=== PATIENT | male | born 1950 | race Caucasian/White ===

== ENCOUNTER 2018-01-08 14:36 | Inpatient (IN) | payer OTHER, MEDICARE ==
[~2018-01-08] VITALS: Ht 177.8 cm; Wt 140.8 kg
[2018-01-08 14:39] VITALS: BP_SYST 132
[2018-01-08] MEDS ORDERED: MORPHINE 4 MG/ML INJ. SYRINGE IM ONE (15:00)
[2018-01-08] MEDS ORDERED: NACL 0.9% 1,000 ML IV ONE (15:00)
[2018-01-08 15:16] LABS: BILIRUBIN,URINE NEGATIVE (NEGATIVE); BLOOD, URINE NEGATIVE (NEGATIVE); CLARITY/URINE CLEAR (CLEAR); COLOR,URINE YELLOW (YELLOW); GLUCOSE,URINE 3+ (NEGATIVE); KETONES,URINE NEGATIVE (NEGATIVE); LEUKOCYTE ESTERASE ,URINE NEGATIVE (NEGATIVE); NITRITE, URINE NEGATIVE (NEGATIVE); PROTEIN URINE NEGATIVE (NEGATIVE); UROBILINOGEN,URINE 0.2 (0.2-1.0)
[2018-01-08 15:27] LABS: BASOPHILS % (AUTO) 0.6 % (0.0-2.0); EOSINOPHILS # (AUTO) 0.4 K/uL (0.0-0.4); EOSINOPHILS % (AUTO) 4.5 % (0.0-4.0); HEMATOCRIT 44.5 % (36-54); HEMOGLOBIN 15.2 g/dL (14.0-18.0); LYMPHOCYTES # (AUTO) 1.4 K/uL (1.0-5.5); LYMPHOCYTES % (AUTO) 17.7 % (20.5-51.5); MEAN CORPUSCULAR HEMOGLOBIN 27 pg (27-31); MEAN CORPUSCULAR HGB CONC 34 % (32-36); MEAN CORPUSCULAR VOLUME 79 fL (79.0-98.0); MONOCYTES # (AUTO) 0.4 K/uL (0.0-1.0); MONOCYTES % (AUTO) 4.9 % (1.7-9.3); NEUTROPHILS # (AUTO) 5.8 K/uL (1.8-7.7); NEUTROPHILS % (AUTO) 72.3 % (40.0-70.0); PLATELET COUNT (AUTO) 141 K/uL (130-430); RED BLOOD CELL COUNT(AUTO) 5.61 MIL/uL (4.2-6.2); RED CELL DISTRIBUTION WIDTH 12.9 % (9.0-15.0)
[2018-01-08 15:29] LABS: BACTERIA,URINE FEW /HPF (None Seen); RBC,URINE 0-3 /HPF (0-3); WBC,URINE 0-3 /HPF (0-3)
[2018-01-08 15:40] LABS: CALCIUM 9.2 mg/dL (8.4-11.0); CREATININE 0.98 mg/dL (0.55-1.30); POTASSIUM 4.4 mmol/L (3.5-5.1)
[2018-01-08 15:41] LABS: PROTHROMBIN TIME 10.4 SECS (9.5-12.5)
[2018-01-08 15:45] LABS: ALBUMIN 3.5 g/dL (3.4-4.8); TOTAL BILIRUBIN 0.5 mg/dL (0.0-1.0)
[2018-01-08] MEDS ORDERED: IOHEXOL 100 ML IV ONE (15:48)
[2018-01-08] MEDS ORDERED: INSULIN REGULAR, HUMAN 10 UNITS/0.1 ML INJ IVP ONE (16:15)
[2018-01-08] MEDS ORDERED: cefTRIAXone 1 GM VIAL ONE (16:57)
[2018-01-08] MEDS ORDERED: cefTRIAXone 1 GM in D5W 50 ML IV ONE (17:00)
[2018-01-08] MEDS ORDERED: CLOP75TA2 PO (17:32)
[2018-01-08] MEDS ORDERED: [UNRECOGNIZED DRUG - OTHER] PO (17:32)
[2018-01-08] MEDS ORDERED: [UNRECOGNIZED DRUG - OTHER] PO (17:32)
[2018-01-08] MEDS ORDERED: GLIP10TA11 PO (17:32)
[2018-01-08] MEDS ORDERED: LIP80 PO (17:32)
[2018-01-08] MEDS ORDERED: [UNRECOGNIZED DRUG - OTHER] INJ (17:32)
[2018-01-08] MEDS ORDERED: CARV25TA55 PO (17:32)
[2018-01-08] MEDS ORDERED: [UNRECOGNIZED DRUG - OTHER] (17:32)
[2018-01-08] MEDS ORDERED: METF1000 PO (17:32)
[2018-01-08] MEDS ORDERED: SITA100T7 PO (17:32)
[2018-01-08] MEDS ORDERED: LOSA25TA3 PO (17:32)
[2018-01-08] MEDS ORDERED: HYDR25TA4 PO (17:32)
[2018-01-08] MEDS ORDERED: ONDANSETRON HCL 4 MG/2 ML VIAL IVP PRN (17:45)
[2018-01-08] MEDS ORDERED: METOCLOPRAMIDE HCL 10 MG/2 ML VIAL IVP PRN (17:45)
[2018-01-08] MEDS ORDERED: DEXTROSE 50% JECT 50 ML DISP.SYRIN IVP PRN (17:45)
[2018-01-08] MEDS ORDERED: MORPHINE 4 MG/ML INJ. SYRINGE IVP PRN (17:45)
[2018-01-08 17:52] VITALS: BP_SYST 148
[2018-01-08] MEDS: metFORMIN HCL 500 MG TABLET PO SCH (18:00)
[2018-01-08] MEDS ORDERED: PANTOPRAZOLE SODIUM 40 MG/VIAL (PROTONIX) IVP ONE (18:30)
[2018-01-08] MEDS ORDERED: FLUCONAZOLE 100 MG TABLET (DIFLUCAN) PO ONE (19:00)
[2018-01-08] MEDS: NACL 0.9% 1,000 ML IV SCH (19:12)
[2018-01-08 20:13] VITALS: BP_SYST 158
[2018-01-08] MEDS: CARVEDILOL 25 MG TABLET (COREG) PO SCH (21:00)
[2018-01-08] MEDS: CLOTRIMAZOLE/BETAMET DIPROP 15 GM TUBE TP SCH (21:01)
[2018-01-08] MEDS: INSULIN REGULAR, HUMAN 100 UNITS/ML, 10 ML VIAL (novoLIN R) SUBCUT PRN (21:06)
[2018-01-08] MEDS: MORPHINE 4 MG/ML INJ. SYRINGE IVP PRN (22:14)
[2018-01-09 00:20] VITALS: BP_SYST 158
[2018-01-09] MEDS: MORPHINE 4 MG/ML INJ. SYRINGE IVP PRN ×2 (05:16→18:05)
[2018-01-09] MEDS: NACL 0.9% 1,000 ML IV SCH (05:17)
[2018-01-09] MEDS: INSULIN REGULAR, HUMAN 100 UNITS/ML, 10 ML VIAL (novoLIN R) SUBCUT PRN ×4 (06:15→22:07)
[2018-01-09 06:39] LABS: BASOPHILS % (AUTO) 0.3 % (0.0-2.0); EOSINOPHILS # (AUTO) 0.4 K/uL (0.0-0.4); EOSINOPHILS % (AUTO) 6.6 % (0.0-4.0); HEMATOCRIT 43.3 % (36-54); HEMOGLOBIN 14.4 g/dL (14.0-18.0); LYMPHOCYTES # (AUTO) 1.4 K/uL (1.0-5.5); LYMPHOCYTES % (AUTO) 21.7 % (20.5-51.5); MEAN CORPUSCULAR HEMOGLOBIN 27 pg (27-31); MEAN CORPUSCULAR HGB CONC 33 % (32-36); MEAN CORPUSCULAR VOLUME 81 fL (79.0-98.0); MONOCYTES # (AUTO) 0.4 K/uL (0.0-1.0); MONOCYTES % (AUTO) 6.1 % (1.7-9.3); NEUTROPHILS # (AUTO) 4.2 K/uL (1.8-7.7); NEUTROPHILS % (AUTO) 65.3 % (40.0-70.0); PLATELET COUNT (AUTO) 136 K/uL (130-430); RED BLOOD CELL COUNT(AUTO) 5.33 MIL/uL (4.2-6.2); WHITE BLOOD COUNT (AUTO) 6.4 K/uL (4.8-10.8)
[2018-01-09 07:12] LABS: SODIUM SERUM 135 mmol/L (136-145)
[2018-01-09 07:13] LABS: ANION GAP 7 (5-15); CALCIUM 9.2 mg/dL (8.4-11.0); CHLORIDE 98 mmol/L (98-107); CREATININE 0.84 mg/dL (0.55-1.30); GLUCOSE 230 mg/dL (70-99); POTASSIUM 3.7 mmol/L (3.5-5.1); UREA NITROGEN, BLOOD 14 mg/dL (8-21)
[2018-01-09 07:14] LABS: ALANINE AMINOTRANSFERASE 131 U/L (12-78); ASPARTATE AMINOTRANSFERASE 61 U/L (10-37); TOTAL BILIRUBIN 0.5 mg/dL (0.0-1.0)
[2018-01-09 07:15] LABS: ALBUMIN 3.3 g/dL (3.4-4.8); CHOLESTEROL 229 mg/dL (<200); HDL CHOLESTEROL 39 mg/dL (>45); TRIGLYCERIDES 136 mg/dL (30-150)
[2018-01-09 07:16] LABS: LDL CHOLESTEROL 166 mg/dL (<100)
[2018-01-09 07:49] LABS: LIPASE 216 U/L (73-393); THYROID STIMULATING HORMONE 2.17 uIu/mL (0.34-4.82)
[2018-01-09 07:54] VITALS: BP_SYST 159
[2018-01-09] MEDS: ATORVASTATIN 20 MG TABLET PO SCH (08:41)
[2018-01-09] MEDS: cefTRIAXone 1 GM IVPB PREMIX 50 ML IV SCH (08:41)
[2018-01-09] MEDS: CLOPIDOGREL BISULFATE 75 MG TABLET PO SCH (08:41)
[2018-01-09] MEDS: LOSARTAN POTASSIUM 25 MG TABLET PO SCH (08:42)
[2018-01-09] MEDS: metFORMIN HCL 500 MG TABLET PO SCH ×2 (08:42→18:01)
[2018-01-09] MEDS: HYDROCHLOROTHIAZIDE 25 MG TABLET (HCTZ) PO SCH (08:42)
[2018-01-09] MEDS: FLUCONAZOLE 100 MG TABLET (DIFLUCAN) PO SCH (08:42)
[2018-01-09] MEDS: PANTOPRAZOLE SODIUM 40 MG/VIAL (PROTONIX) IVP SCH ×2 (08:44→21:54)
[2018-01-09] MEDS: CARVEDILOL 25 MG TABLET (COREG) PO SCH ×2 (08:44→21:55)
[2018-01-09] MEDS: CLOTRIMAZOLE/BETAMET DIPROP 15 GM TUBE TP SCH ×2 (09:00→21:56)
[2018-01-09 12:56] VITALS: BP_SYST 137
[2018-01-09] MEDS ORDERED: SERTRALINE HCL 50 MG TABLET PO ONE (15:00)
[2018-01-09 16:25] VITALS: BP_SYST 151
[2018-01-09 20:12] VITALS: BP_SYST 155
[2018-01-09] MEDS: DICYCLOMINE HCL 10 MG CAPSULE PO SCH (21:54)
[2018-01-10 00:13] VITALS: BP_SYST 106
[2018-01-10] MEDS: INSULIN REGULAR, HUMAN 100 UNITS/ML, 10 ML VIAL (novoLIN R) SUBCUT PRN ×2 (06:39→11:31)
[2018-01-10 06:58] LABS: ALBUMIN 3.3 g/dL (3.4-4.8); BILIRUBIN,DIRECT 0.1 mg/dL (0.0-0.3); TOTAL BILIRUBIN 0.6 mg/dL (0.0-1.0)
[2018-01-10 08:00] VITALS: BP_SYST 157
[2018-01-10] MEDS ORDERED: SERTRALINE HCL 50 MG TABLET PO SCH (09:00)
[2018-01-10] MEDS: cefTRIAXone 1 GM IVPB PREMIX 50 ML IV SCH (09:36)
[2018-01-10] MEDS: PANTOPRAZOLE SODIUM 40 MG/VIAL (PROTONIX) IVP SCH (09:45)
[2018-01-10] MEDS: metFORMIN HCL 500 MG TABLET PO SCH (09:55)
[2018-01-10] MEDS: FLUCONAZOLE 100 MG TABLET (DIFLUCAN) PO SCH (09:56)
[2018-01-10] MEDS: HYDROCHLOROTHIAZIDE 25 MG TABLET (HCTZ) PO SCH (09:56)
[2018-01-10] MEDS: CLOPIDOGREL BISULFATE 75 MG TABLET PO SCH (09:56)
[2018-01-10] MEDS: DICYCLOMINE HCL 10 MG CAPSULE PO SCH (09:56)
[2018-01-10] MEDS: ATORVASTATIN 20 MG TABLET PO SCH (09:56)
[2018-01-10] MEDS: CARVEDILOL 25 MG TABLET (COREG) PO SCH (09:57)
[2018-01-10] MEDS: LOSARTAN POTASSIUM 25 MG TABLET PO SCH (09:57)
[2018-01-10] MEDS: CLOTRIMAZOLE/BETAMET DIPROP 15 GM TUBE TP SCH (10:03)
[2018-01-10] MEDS ORDERED: DOXYCYCLINE HYCLATE 100 MG CAPSULE PO ONE (12:15)
[2018-01-10 13:01] VITALS: BP_SYST 143
[2018-01-10 13:02] VITALS: BP_SYST 143
[2018-01-10] MEDS ORDERED: DOXYCYCLINE HYCLATE 100 MG CAPSULE PO SCH (21:00)
== END 2018-01-10 13:54 | disposition home or self-care (01) | DRG 552 ==
LOC: SED 14:36 → STU 17:00 → SMU 01-09 17:41
PROVIDERS: ADMIT Internal Medicine; ATTEND Internal Medicine
DX: M47.815 Spondylosis without myelopathy or radiculopathy, thoracolumbar region (principal); E66.01 Morbid (severe) obesity due to excess calories; E11.65 Type 2 diabetes mellitus with hyperglycemia; Z68.41 Body mass index [BMI] 40.0-44.9, adult; R16.2 Hepatomegaly with splenomegaly, not elsewhere classified; K43.9 Ventral hernia without obstruction or gangrene; I10 Essential (primary) hypertension; K57.90 Diverticulosis of intestine, part unspecified, without perforation or abscess without bleeding; E78.5 Hyperlipidemia, unspecified; M81.0 Age-related osteoporosis without current pathological fracture; I25.10 Atherosclerotic heart disease of native coronary artery without angina pectoris; K46.9 Unspecified abdominal hernia without obstruction or gangrene; Z95.5 Presence of coronary angioplasty implant and graft; I25.2 Old myocardial infarction; Z98.84 Bariatric surgery status; Z79.02 Long term (current) use of antithrombotics/antiplatelets; Z79.4 Long term (current) use of insulin; Z79.84 Long term (current) use of oral hypoglycemic drugs; Z79.899 Other long term (current) drug therapy
CPT/HCPCS: 36415; 71045; 72128; 72131; 76700-TC; 80053; 80061; 80076; 81000-TC; 82962; 83036; 83605; 83690-TC; 83735-TC; 84443-TC; 84484; 85025; 85610-TC; 87040-TC; 93005; 96365; 96372; 96375; 99285; C9113; J0696; J1815; J2270; J7030; J7060; Q9967

== ENCOUNTER 2018-07-14 14:39 | Emergency (ER) | payer OTHER, MEDICARE ==
[~2018-07-14] VITALS: Ht 177.8 cm; Wt 139.7 kg
[~2018-07-14 14:39] MED LIST: CARV25TA55 PO; CLOP75TA2 PO; GLIP10TA11 PO; HYDR25TA4 PO; LIP80 PO; LOSA25TA3 PO; METF1000 PO; SITA100T11 PO; [UNRECOGNIZED DRUG - OTHER]; [UNRECOGNIZED DRUG - OTHER] INJ; [UNRECOGNIZED DRUG - OTHER] PO; [UNRECOGNIZED DRUG - OTHER] PO
[2018-07-14 15:00] VITALS: BP_SYST 126
[2018-07-14] MEDS ORDERED: cefTRIAXone 1 GM VIAL IM ONE (16:15)
[2018-07-14] MEDS ORDERED: LIDOCAINE 1%, 20 ML MDV 20 ML ONE (16:16)
== END 2018-07-14 16:48 | disposition home or self-care (01) ==
LOC: SED 14:39
DX: N39.0 Urinary tract infection, site not specified (principal); E11.9 Type 2 diabetes mellitus without complications; I10 Essential (primary) hypertension; Z86.79 Personal history of other diseases of the circulatory system; Z79.899 Other long term (current) drug therapy
CPT/HCPCS: 82962; 96372; 99283; J0696; J2001

== ENCOUNTER 2018-09-22 15:40 | Emergency (ER) | payer OTHER, MEDICARE ==
[~2018-09-22] VITALS: Ht 177.8 cm; Wt 139.7 kg
[2018-09-22 15:49] VITALS: BP_SYST 119
[2018-09-22] MEDS ORDERED: DIPHENHYDRAMINE INJ 50 MG/ML VIAL IVP ONE (16:15)
[2018-09-22] MEDS ORDERED: MORPHINE 4 MG/ML INJ. SYRINGE IVP ONE (16:15)
[2018-09-22] MEDS ORDERED: PIPERACILLIN/TAZO 3.38 GM in NS 50 ML IV ONE (16:15)
[2018-09-22 16:23] LABS: BASOPHILS % (AUTO) 0.5 % (0.0-2.0); EOSINOPHILS # (AUTO) 0.4 K/uL (0.0-0.4); EOSINOPHILS % (AUTO) 5.4 % (0.0-4.0); HEMATOCRIT 45.3 % (36-54); HEMOGLOBIN 15.1 g/dL (14.0-18.0); LYMPHOCYTES # (AUTO) 1.3 K/uL (1.0-5.5); LYMPHOCYTES % (AUTO) 16.8 % (20.5-51.5); MEAN CORPUSCULAR HEMOGLOBIN 27 pg (27-31); MEAN CORPUSCULAR HGB CONC 33 % (32-36); MEAN CORPUSCULAR VOLUME 82 fL (79.0-98.0); MONOCYTES # (AUTO) 0.3 K/uL (0.0-1.0); MONOCYTES % (AUTO) 3.8 % (1.7-9.3); NEUTROPHILS # (AUTO) 5.8 K/uL (1.8-7.7); NEUTROPHILS % (AUTO) 73.5 % (40.0-70.0); PLATELET COUNT (AUTO) 152 K/uL (130-430); RED BLOOD CELL COUNT(AUTO) 5.55 MIL/uL (4.2-6.2); RED CELL DISTRIBUTION WIDTH 12.6 % (9.0-15.0); WHITE BLOOD COUNT (AUTO) 7.8 K/uL (4.8-10.8)
[2018-09-22 16:25] LABS: BILIRUBIN,URINE NEGATIVE (NEGATIVE); BLOOD, URINE NEGATIVE (NEGATIVE); CLARITY/URINE CLEAR (CLEAR); COLOR,URINE YELLOW (YELLOW); GLUCOSE,URINE 2+ (NEGATIVE); KETONES,URINE TRACE (NEGATIVE); LEUKOCYTE ESTERASE ,URINE NEGATIVE (NEGATIVE); NITRITE, URINE NEGATIVE (NEGATIVE); PH,URINE 5.5 (5.0-8.0); PROTEIN URINE TRACE (NEGATIVE); UROBILINOGEN,URINE 0.2 (0.2-1.0)
[2018-09-22 16:35] LABS: BACTERIA,URINE MODERATE /HPF (None Seen); HYALINE CASTS, URINE 0-10 /LPF (None Seen); MUCUS,URINE 2+ /LPF (None Seen); RBC,URINE 0-3 /HPF (0-3); WBC,URINE 0-3 /HPF (0-3)
[2018-09-22 16:47] LABS: INR 1.1 (0.80-1.20); PROTHROMBIN TIME 10.9 SECS (9.5-12.5)
[2018-09-22 16:59] LABS: CALCIUM 9.2 mg/dL (8.4-11.0); CREATININE 1.11 mg/dL (0.55-1.30); POTASSIUM 4.6 mmol/L (3.5-5.1)
[2018-09-22 17:03] LABS: ALBUMIN 3.6 g/dL (3.4-4.8); TOTAL BILIRUBIN 0.5 mg/dL (0.0-1.0)
[2018-09-22] MEDS ORDERED: PIPERACILLIN/TAZOBACTAM 3.375 GM/VIAL (ZOSYN) IV ONE (17:04)
[2018-09-22] MEDS ORDERED: KETOROLAC TROMETHAMINE 30 MG VIAL IVP ONE (17:45)
== END 2018-09-22 18:25 | disposition home or self-care (01) ==
LOC: SED 15:40
DX: N39.0 Urinary tract infection, site not specified (principal); E11.9 Type 2 diabetes mellitus without complications; I10 Essential (primary) hypertension; I25.2 Old myocardial infarction; E78.5 Hyperlipidemia, unspecified; E66.9 Obesity, unspecified; Z68.41 Body mass index [BMI] 40.0-44.9, adult; Z86.79 Personal history of other diseases of the circulatory system; Z79.899 Other long term (current) drug therapy; Z95.5 Presence of coronary angioplasty implant and graft
CPT/HCPCS: 36415; 71045; 74176; 80053; 81000; 83605; 83690; 85025; 85610; 87040; 87086; 93005; 96365; 96375; 99284; J1200; J1885; J2270; J2543